=== PATIENT | female | born 1965 | race Caucasian/White ===

== ENCOUNTER → 2017-12-09 | Outpatient (CLI) | payer OTHER ==
[~2017-12-09] MED LIST: Ambien10 MG PO; CALC1.25T; CLON.2 PO; D3-20002000 UNIT; FISH1000; Hydrocodone Bt1 EACH PO; Levothyroxine137 MCG PO; Multiple Vitam1 EAC1; PIROXICAM; TEMA30 PO; UBID10; ZOLP12.5 PO; ZOLPIDEM TART12.5 MG PO
== END | disposition home or self-care (01) ==
LOC: PLD 07:33 → LAB SHORT 07:33
DX: D22.5 Melanocytic nevi of trunk (principal)
CPT/HCPCS: 88305

== ENCOUNTER → 2018-02-11 | Outpatient (CLI) | payer OTHER | END | disposition home or self-care (01) | LOC: LAB EV 11:15 | DX: K21.9 Gastro-esophageal reflux disease without esophagitis (principal) | CPT/HCPCS: 87338 ==

== ENCOUNTER 2018-05-12 07:24 | Day surgery (SDC) | payer OTHER ==
[~2018-05-12] VITALS: Ht 175.3 cm; Wt 72.3 kg
== END 2018-05-12 09:30 | disposition home or self-care (01) ==
LOC: ORSCSDS 07:24
PROVIDERS: Internal Medicine Gastroenterology
PROC: 0D758ZZ Dilation of Esophagus, Via Natural or Artificial Opening Endoscopic (ICD-10-PCS; principal; 2018-05-12 08:45)
DX: K21.9 Gastro-esophageal reflux disease without esophagitis (principal); R13.10 Dysphagia, unspecified; E03.9 Hypothyroidism, unspecified; G47.30 Sleep apnea, unspecified; Z79.899 Other long term (current) drug therapy
CPT/HCPCS: J0330; J1980; J2405

== ENCOUNTER → 2018-11-01 | Outpatient (CLI) | payer OTHER | END | disposition home or self-care (01) | LOC: PLD 15:00 → LAB SHORT 15:00 | DX: D48.5 Neoplasm of uncertain behavior of skin (principal) | CPT/HCPCS: 88305 ==

== ENCOUNTER → 2018-12-29 | Outpatient (CLI) | payer OTHER ==
[2018-12-30 10:44] LABS: Candida species (DNA Probe) Negative (NEGATIVE); G. vaginalis (DNA Probe) Positive (NEGATIVE); T. vaginalis (DNA Probe) Negative (NEGATIVE)
== END | disposition home or self-care (01) ==
LOC: LAB 11:15 → LAB SHORT 11:15
PROVIDERS: Obstetrics & Gynecology
DX: N76.0 Acute vaginitis (principal)
CPT/HCPCS: 87480; 87510; 87660

== ENCOUNTER → 2019-05-04 | Outpatient (CLI) | payer OTHER ==
[~2019-05-04] MED LIST changes: +AMIT50 PO; +ASCO500 PO; +CLOB.05TO; +COQ10 PO; +FISH OIL; +FOLIC ACID; +HYDROCODONE/APAP; +IBUP600 PO; +MAGNESIUM400 MG PO; +METO25ER PO; +MULTIVITAMIN; +Natrol Alpha 3300 MG GT; +PROBIOTIC; +RIZATRIPTAN10 M2 PO; +Synthroid137 MCG PO; +TACROLIMUS; +TUMS500 MG; +VITAMIN D3 PO; +ZYRTEC
== END | disposition home or self-care (01) ==
LOC: LAB SHORT 07:55 → PLD 07:55
DX: L72.11 Pilar cyst (principal)
CPT/HCPCS: 88304

== ENCOUNTER 2019-07-04 18:42 | Observation (INO) | payer OTHER ==
[~2019-07-04] VITALS: Ht 175.3 cm; Wt 67.2 kg
[~2019-07-04 18:42] MED LIST changes: -AMIT50 PO; -ASCO500 PO; -CLOB.05TO; -COQ10 PO; -FISH OIL; -FOLIC ACID; -HYDROCODONE/APAP; -IBUP600 PO; -MAGNESIUM400 MG PO; -METO25ER PO; -MULTIVITAMIN; -Natrol Alpha 3300 MG GT; -PROBIOTIC; -RIZATRIPTAN10 M2 PO; -Synthroid137 MCG PO; -TACROLIMUS; -TUMS500 MG; -VITAMIN D3 PO; -ZYRTEC
[2019-07-04] MEDS ORDERED: ZYRTEC (19:56)
[2019-07-04] MEDS ORDERED: Synthroid137 MCG PO (19:56)
[2019-07-04 19:57] LABS: BASOPHILS ABSOLUTE AUTO 0.01 K/mm3 (0.00-0.23); BASOPHILS PERCENT AUTO 0 % (0-2); EOSINOPHILS ABSOLUTE AUTO 0.06 K/mm3 (0.00-0.68); EOSINOPHILS PERCENT AUTO 1 % (0-6); Hematocrit 39.8 % (33.0-51.0); Hemoglobin 13.2 g/dL (11.5-16.0); IMMATURE GRAN ABSOLUTE AUTO 0.01 K/mm3 (0.00-0.10); IMMATURE GRAN PERCENT AUTO 0 % (0-1); LYMPHOCYTES ABSOLUTE AUTO 1.42 K/mm3 (0.84-5.20); LYMPHOCYTES PERCENT AUTO 26 % (21-46); MONOCYTES ABSOLUTE AUTO 0.49 K/mm3 (0.16-1.47); MONOCYTES PERCENT AUTO 9 % (4-13); Mean Corpuscular HGB 31.1 pg (26.0-34.0); Mean Corpuscular HGB Conc 33.2 g/dL (31.5-36.5); Mean Corpuscular Volume 94 fL (80-100); Mean Platelet Volume 12.4 fL (9.1-12.4); NEUTROPHILS ABSOLUTE AUTO 3.39 K/mm3 (1.96-9.15); NEUTROPHILS PERCENT AUTO 63 % (41-73); Platelet Count 123 K/mm3 (150-400); RDW Coefficient Variation 12.4 % (11.7-14.2); Red Blood Cell Count 4.25 M/mm3 (3.80-5.20); White Blood Cell Count 5.38 K/mm3 (4.00-11.30)
[2019-07-04] MEDS ORDERED: AMIT50 PO (19:57)
[2019-07-04] MEDS ORDERED: RIZATRIPTAN10 M2 PO (19:57)
[2019-07-04] MEDS ORDERED: METO25ER PO (19:57)
[2019-07-04] MEDS ORDERED: ZOLP12.5 PO (19:57)
[2019-07-04] MEDS ORDERED: TACROLIMUS (19:58)
[2019-07-04] MEDS ORDERED: HYDROCODONE/APAP (19:58)
[2019-07-04] MEDS ORDERED: CLOB.05TO (19:58)
[2019-07-04] MEDS ORDERED: MULTIVITAMIN (19:58)
[2019-07-04] MEDS ORDERED: ASCO500 PO (19:59)
[2019-07-04] MEDS ORDERED: VITAMIN D3 PO (19:59)
[2019-07-04] MEDS ORDERED: FOLIC ACID (19:59)
[2019-07-04] MEDS ORDERED: FISH OIL (19:59)
[2019-07-04] MEDS ORDERED: TUMS500 MG (19:59)
[2019-07-04] MEDS ORDERED: PROBIOTIC (19:59)
[2019-07-04] MEDS ORDERED: COQ10 PO (19:59)
[2019-07-04] MEDS ORDERED: MAGNESIUM400 MG PO (20:00)
[2019-07-04] MEDS ORDERED: Natrol Alpha 3300 MG GT (20:00)
[2019-07-04 20:25] LABS: Anion Gap 6 mmol/L (6-16); Blood Urea Nitrogen 14 mg/dL (8-24); Bun/Creatinine Ratio 20.3 (12.0-20.0); CO2, Blood 30 mmol/L (21-32); Calcium, Blood 8.8 mg/dL (8.5-10.1); Chloride, Blood 106 mmol/L (98-108); Creatinine, Blood 0.69 mg/dL (0.40-1.00); Glomerular Filtration Rate >60 (60-); Glucose, Blood 93 mg/dL (70-99); Potassium, Blood 3.5 mmol/L (3.5-5.5); Sodium, Blood 142 mmol/L (136-145); Troponin I <0.015 ng/mL (0.000-0.040)
--- NOTE | 2019-07-05 04:24 | NUR ---
07/05/19 0320 PAGED CUSTODIAN BLOOD BANK HOSPITALIST FOR HEADACHE/CHEST DISCOMFORT MED. TYLENOL 650 MG PO GIVEN PER JAN AT 0330. ORIENTED PT TO CALL SYSTEM AND TO CALL STAFF IF ANY FURTHER S/S OR PAIN. PT STATED HER UNDERSTANDING OF INFO. TELEMETRY IS STABLE AT SR IN THE 60'S.
--- NOTE | 2019-07-05 07:49 | NUR ---
07/05/19 0630 PT C/O HEADACHE AGAIN WITH "6" GENERAL CHEST DISCOMFORT. DAY RN WILL BRING MORE TYLENOL AFTER REPORT. HEART MONITOR STABLE AT SR IN THE 60'S.
--- NOTE | 2019-07-05 11:33 | NUR ---
echocardiogram complete
[2019-07-05] MEDS ORDERED: IBUP600 PO (14:00)
--- NOTE | 2019-07-05 14:26 | NUR ---
PT DISCHARGED AT 1420 WITH FAMILY TO TRANSPORT. PT REPORTED MILD CHEST PAIN WHICH WAS RESOLVING AT START OF SHIFT. PT INSTEAD WAS HAVING MORE TROUBLE WITH A HEADACHE AND HAD RECIEVED TYLENOL WHICH HAD NOT BEEN EFFECTIVE. DR COSTELLO WAS NOTIFIED AND MADE CHANGES TO EMAR. PT TREATED ACCORDINGLY AND THIS CHANGE WAS EFFECTIVE FOR HER PAIN. AOX4 AND COOPERATIVE OF ALL CARE. PT HAD ALL PAPERS REVIEWED AND EDUCATIONAL MATERIAL SENT WITH HER. NO DISTRESS NOTED.
== END 2019-07-05 14:27 | disposition home or self-care (01) ==
LOC: ER 18:42 → MEDS 18:43 → ER 07-05 02:22 → MEDS 07-05 02:35
PROVIDERS: Physician Assistant; ADMIT Hospitalist
DX: R07.89 Other chest pain (principal); M79.7 Fibromyalgia; E03.9 Hypothyroidism, unspecified; D69.6 Thrombocytopenia, unspecified; Z88.0 Allergy status to penicillin; Z88.5 Allergy status to narcotic agent; Z88.2 Allergy status to sulfonamides; Z79.899 Other long term (current) drug therapy
CPT/HCPCS: 36415; 71046; 80048; 84484; 85025; 93005; 93010; 93306; 96372; 96374; 99285-25; A9270; G0378; J1650; J1885

== ENCOUNTER → 2023-03-13 | Outpatient (CLI) | payer OTHER ==
[~2023-03-13] MED LIST changes: +AMIT50 PO; +ASCO500 PO; +CLOB.05TO; +COQ10 PO; +FISH OIL; +FOLIC ACID; +HYDROCODONE/APAP; +IBUP600 PO; +MAGNESIUM400 MG PO; +METO25ER PO; +MULTIVITAMIN; +Natrol Alpha 3300 MG GT; +PROBIOTIC; +RIZATRIPTAN10 M2 PO; +Synthroid137 MCG PO; +TACROLIMUS; +TUMS500 MG; +VITAMIN D3 PO; +ZYRTEC
[2023-03-17 15:10] LABS: HPV 16 Negative (Negative); HPV 18 Negative (Negative); HPV OTHER HR TYPES Negative (Negative)
== END | disposition home or self-care (01) ==
LOC: LAB SHORT 18:54 → LAB 18:54
PROVIDERS: Obstetrics & Gynecology
DX: Z01.419 Encounter for gynecological examination (general) (routine) without abnormal findings (principal)
CPT/HCPCS: 87624; G0145

== ENCOUNTER → 2023-04-06 | Outpatient (CLI) | payer OTHER ==
[2023-04-06 14:40] LABS: Candida species (DNA Probe) Positive (NEGATIVE); G. vaginalis (DNA Probe) Negative (NEGATIVE); T. vaginalis (DNA Probe) Negative (NEGATIVE)
== END | disposition home or self-care (01) ==
LOC: LAB SHORT 10:29 → LAB 10:29
PROVIDERS: Family Medicine
DX: N89.8 Other specified noninflammatory disorders of vagina (principal)
CPT/HCPCS: 87480; 87510; 87660

== ENCOUNTER 2023-06-21 11:33 | Emergency (ER) | payer OTHER ==
[~2023-06-21] VITALS: Ht 175.3 cm; Wt 73.5 kg
[2023-06-21 12:40] LABS: BASOPHILS ABSOLUTE AUTO 0.01 K/mm3 (0.00-0.23); BASOPHILS PERCENT AUTO 0 % (0-2); EOSINOPHILS ABSOLUTE AUTO 0.03 K/mm3 (0.00-0.68); EOSINOPHILS PERCENT AUTO 1 % (0-6); Hematocrit 39.2 % (33.0-51.0); Hemoglobin 13.4 g/dL (11.5-16.0); IMMATURE GRAN PERCENT AUTO 0 % (0-1); LYMPHOCYTES PERCENT AUTO 28 % (21-46); MONOCYTES ABSOLUTE AUTO 0.34 K/mm3 (0.16-1.47); MONOCYTES PERCENT AUTO 11 % (4-13); Mean Corpuscular HGB 29.1 pg (26.0-34.0); Mean Corpuscular HGB Conc 34.2 g/dL (31.5-36.5); Mean Corpuscular Volume 85 fL (80-100); Mean Platelet Volume 11.7 fL (9.1-12.4); NEUTROPHILS ABSOLUTE AUTO 1.93 K/mm3 (1.96-9.15); NEUTROPHILS PERCENT AUTO 60 % (41-73); Platelet Count 147 K/mm3 (150-400); RDW Coefficient Variation 12.9 % (11.7-14.2); RDW Standard Deviation 39.8 fL (35.1-46.3); Red Blood Cell Count 4.61 M/mm3 (3.80-5.20); White Blood Cell Count 3.21 K/mm3 (4.00-11.30)
[2023-06-21 12:55] LABS: Albumin, Blood 4.3 g/dL (3.4-5.0); Albumin/Globulin Ratio 1.4 (0.8-1.8); Bilirubin, Total 0.4 mg/dL (0.1-1.0); Bun/Creatinine Ratio 10.9 (12.0-20.0); Calcium, Blood 9.1 mg/dL (8.5-10.1); Creatinine, Blood 0.91 mg/dL (0.40-1.00); Globulin, Blood 3.1 g/dL (2.2-4.0); Potassium, Blood 4.7 mmol/L (3.5-5.5); Total Protein, Blood 7.4 g/dL (6.4-8.2)
[2023-06-21] MEDS ORDERED: LEVOTHYROXINE150 MC9 PO (14:51)
[2023-06-21] MEDS ORDERED: Hydroxychloroq200 MG PO (14:52)
[2023-06-21] MEDS ORDERED: ZOLM5 PO (14:54)
[2023-06-21 15:21] LABS: Influenza A, PCR NEGATIVE (NEGATIVE); Influenza B, PCR NEGATIVE (NEGATIVE); Resp Syncytial Virus, PCR NEGATIVE (NEGATIVE); SARS-Cov-2 (COVID-19) PCR, MMC NEGATIVE (NEGATIVE)
[2023-06-21 15:30] VITALS: BP 122/90
== END 2023-06-21 16:00 | disposition home or self-care (01) ==
LOC: ER 11:33
PROVIDERS: Emergency Medicine
DX: R07.89 Other chest pain (principal); I10 Essential (primary) hypertension; R00.0 Tachycardia, unspecified; E03.9 Hypothyroidism, unspecified; Z88.5 Allergy status to narcotic agent; Z88.0 Allergy status to penicillin; Z88.8 Allergy status to other drugs, medicaments and biological substances; Z88.2 Allergy status to sulfonamides; Z79.899 Other long term (current) drug therapy
CPT/HCPCS: 0241U; 71046; 80053; 83880; 84443; 84484; 85025; 93005; 93010; 99284-25

== ENCOUNTER → 2023-08-11 | Outpatient (CLI) | payer OTHER ==
[~2023-08-11] MED LIST changes: +Hydroxychloroq200 MG PO; +LEVOTHYROXINE150 MC9 PO; +ZOLM5 PO
== END ==
LOC: PLD 11:53 → LAB 11:53 → LAB SHORT 11:53
DX: L82.1 Other seborrheic keratosis (principal)
CPT/HCPCS: 88305

== ENCOUNTER 2025-09-25 10:41 | Day surgery (SDC) | payer OTHER ==
[~2025-09-25] VITALS: Ht 175.3 cm; Wt 71.0 kg
[2025-09-25] VITALS (21 sets, daily range): BP systolic 92–141; BP diastolic 60–82
[~2025-09-25 10:41] MED LIST changes: +ALBU90OI INH; +DERMACINRX FOL1 EAC2 PO; +DOTTI TOP; +LEVSOD100 PO; +NARA2.5 PO; +PROG100 PO; +Retin-A20 GM TOP; +Triamcinolone A15 G3 TOP; +VALA500 PO; +ZOLMITRIPTAN ODT5 MG PO; +[UNRECOGNIZED DRUG - CODE] TOP
--- NOTE | 2025-09-25 11:14 | NUR ---
Ambulatory in Day Surgery. History, Chart, Medications and Allergies reviewed before start of procedure. Lungs clear T/O to Auscultation. Patient confirms NPO status and agrees with scheduled surgery. Pre-Op teaching done. Pt verbalizes understanding. Patient States Post-Procedure ride home has been arranged.
--- NOTE | 2025-09-25 11:36 | NUR ---
09/25/25 1136 Amairani Byrne CONFIRMED AND REVIEWED H&P, MEDCICATIONS, ALLERGIES, MEDICAL HISTORY, RESPIRATORY HISTORY, VITAL SIGNS, 3-LEAD EKG, CONSENTS, AND PHYSICIAN ORDERS. PATIENT CONFIRMS NPO STATUS AND AGREES WITH SCHEDULED PROCEDURE. MONITOR INTACT WITH CONTINUOUS PULSE OXIMETRY, CAPNOGRAPHY, 3-LEAD EKG, INTERMITTENT BP. SUPPLEMENTAL O2 TO BE TITRATED THROUGHOUT PROCEDURE TO MAINTAIN O2 SATURATION ABOVE 90%. PATIENT DETERMINED TO BE ASA APPROPRIATE FOR PROPOFOL SEDATION PRIOR TO START OF PROCEDURE BY .MALLAMPATI CLASS 2 AIRWAY: COMPLETE VISUALIZATION OF THE UVULA.*LOANER SCOPE PINK [id number]*
--- NOTE | 2025-09-25 12:51 | NUR ---
Patient up to Ambulate independently. Gait steady. Discharge instructions reviewed with patient. Patient verbalizes understanding. Copy given to patient to take home. Patient States Post-Procedure ride home has been arranged. Discharged via wheelchair to private car for ride home. PT TOLERATING PO. REPORTS READY TO GO HOME.
== END 2025-09-25 12:51 | disposition home or self-care (01) ==
LOC: ORSCMMR 10:41 → ORD 11:30 → ORSCMMR 11:30 → ORD 12:30 → ORSCMMR 12:51
PROVIDERS: Family Medicine
PROC: 0DBL8ZX Excision of Transverse Colon, Via Natural or Artificial Opening Endoscopic, Diagnostic (ICD-10-PCS; principal; 2025-09-25 11:30)
PROC: 0DBN8ZX Excision of Sigmoid Colon, Via Natural or Artificial Opening Endoscopic, Diagnostic (ICD-10-PCS; principal; 2025-09-25 11:30)
DX: Z12.11 Encounter for screening for malignant neoplasm of colon (principal); K63.5 Polyp of colon; D12.3 Benign neoplasm of transverse colon; K64.0 First degree hemorrhoids; K64.4 Residual hemorrhoidal skin tags; Z83.719 Family history of colon polyps, unspecified; G47.33 Obstructive sleep apnea (adult) (pediatric); E03.9 Hypothyroidism, unspecified; E78.5 Hyperlipidemia, unspecified; M79.7 Fibromyalgia; F41.8 Other specified anxiety disorders; Z79.899 Other long term (current) drug therapy
CPT/HCPCS: 88305; J2704; J7120